=== PATIENT | male | born 1995 | race Caucasian/White ===

== ENCOUNTER → 2018-11-12 | Outpatient (CLI) | payer OTHER ==
[2018-11-12 16:11] LABS: HEMATOCRIT 45.6 % (42.0-52.0); HEMOGLOBIN 15.8 g/dl (13.5-18.0); MEAN CELL VOLUME 84 fl (80.0-100.0); MEAN CORPUSCULAR HEMOGLOBIN 29 pg (27.0-31.0); MEAN CORPUSCULAR HGB CONC 35 g/dl (33.0-37.0); MEAN PLATELET VOLUME 11.4 fl (7.4-10.4); PLATELET COUNT 169 K/mm3 (130-400); REDCELL DISTRIBUTION WIDTH-CV 12.9 % (11.5-14.5)
[2018-11-12 16:39] LABS: ERYTHROCYTE SEDIMENTATION RATE 1 mm/hr (0-15)
== END ==
LOC: COL.LAB 15:39
PROVIDERS: Orthopaedic Surgery Sports Medicine
DX: Z01.89 Encounter for other specified special examinations (principal)

== ENCOUNTER 2018-12-22 14:30 | Outpatient (RCR) | payer OTHER | END 2019-01-11 | disposition home or self-care (01) | LOC: WSOT | DX: S61.230A Puncture wound without foreign body of right index finger without damage to nail, initial encounter (principal); W55.01XA Bitten by cat, initial encounter; Y92.59 Other trade areas as the place of occurrence of the external cause; Y99.0 Civilian activity done for income or pay; Z87.891 Personal history of nicotine dependence ==

== ENCOUNTER 2019-12-12 18:35 | Emergency (ER) | payer BC ==
[~2019-12-12] VITALS: Ht 188 cm; Wt 82.7 kg
[2019-12-12 19:03] VITALS: BP 127/71; TEMP 99.5
[2019-12-12 19:38] LABS: STREP SCREEN NEGATIVE
[2019-12-12] MEDS ORDERED: TAMIFLU 75MG75 MG PO (20:34)
[2019-12-12 20:57] VITALS: PULSE 89
== END 2019-12-12 20:57 | disposition home or self-care (01) ==
LOC: COL.ER 18:35
PROVIDERS: Physician Assistant
DX: J11.1 Influenza due to unidentified influenza virus with other respiratory manifestations (principal); F17.210 Nicotine dependence, cigarettes, uncomplicated